=== PATIENT | male | born 1990 | race Caucasian/White ===

== ENCOUNTER 2019-07-04 12:13 | Emergency (ER) | payer SELFPAY ==
[~2019-07-04] VITALS: Ht 167.6 cm; Wt 90.7 kg
[2019-07-04 12:17] VITALS: BP 114/62
--- NOTE | 2019-07-04 12:20 | NUR ---
PT. TAKEN TO BED 11 VIA W/C
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
[2019-07-04] MEDS ORDERED: CYCLOBENZAPRINE 10 MG TAB PO ONE (12:40)
[2019-07-04] MEDS ORDERED: KETOROLAC 30 MG/ML VIAL IM ONE (12:40)
--- NOTE | 2019-07-04 12:50 | NUR ---
Pt medicated for pain. X-ray at bedside. Pt taken to x-ray via w/c.
--- NOTE | 2019-07-04 13:13 | NUR ---
Pt report given to Christophe MARCOS. Transfer of care at this time.
[2019-07-04 13:20] VITALS: BP 114/62
--- NOTE | 2019-07-04 13:22 | NUR ---
Patient discharged with v/s stable. Written and verbal after care instructions given and explained regarding muscle spasm . Patient alert, oriented and verbalized understanding of instructions. Ambulatory with steady gait. All questions addressed prior to discharge. ID band removed. Patient advised to follow up with PMD. Rx of ibuprofen and flexeril given. Patient educated on indication of medication including possible reaction and side effects. Opportunity to ask questions provided and answered.
== END 2019-07-04 13:22 | disposition home or self-care (01) ==
LOC: MED 12:13
DX: S39.012A Strain of muscle, fascia and tendon of lower back, initial encounter (principal); V89.2XXA Person injured in unspecified motor-vehicle accident, traffic, initial encounter; Y93.89 Activity, other specified; Y92.89 Other specified places as the place of occurrence of the external cause; Y99.8 Other external cause status
CPT/HCPCS: 72072; 72100; 96372; 99284; J1885